=== PATIENT | female | born 1935 | race Two or more races ===

== ENCOUNTER 2017-01-18 15:55 | Emergency (ER) | payer MEDICARE, OTHER ==
[~2017-01-18] VITALS: Ht 162.6 cm; Wt 63.5 kg
[2017-01-18 16:46] VITALS: BP 110/68
[2017-01-18] MEDS ORDERED: ACETAMINOPHEN 325 MG TABLET ONE (17:09)
[2017-01-18] MEDS: ACETAMINOPHEN 650 MG/20.3 ML UDC PO ONE (17:28)
== END 2017-01-18 20:44 | disposition home or self-care (01) ==
LOC: ER 16:00
DX: M17.9 Osteoarthritis of knee, unspecified (principal); E11.9 Type 2 diabetes mellitus without complications; F02.80 Dementia in other diseases classified elsewhere, unspecified severity, without behavioral disturbance, psychotic disturbance, mood disturbance, and anxiety; G30.9 Alzheimer's disease, unspecified; I10 Essential (primary) hypertension
CPT/HCPCS: 73562 ×2; 99284; A4606; Z7610

== ENCOUNTER 2018-06-27 17:25 | Inpatient (IN) | payer MEDICARE, OTHER ==
[~2018-06-27] VITALS: Ht 157.5 cm; Wt 53.5 kg
[2018-06-27 17:57] LABS: BASOPHILS # (AUTO) 0.1 /CMM (0.0-0.2); HEMATOCRIT 39 % (33-45); HEMOGLOBIN 12.9 g/dL (11.5-14.8); LYMPHOCYTES # (AUTO) 3.1 /CMM (0.8-4.8); LYMPHOCYTES % (AUTO) 32.9 % (20.0-44.0); MEAN CORPUSCULAR HGB CONC 33 g/dl (31.0-36.0); MEAN CORPUSCULAR VOLUME 83 fL (82-100); MONOCYTES # (AUTO) 0.5 /CMM (0.1-1.30); MONOCYTES % (AUTO) 5.6 % (2.0-12.0); NEUTROPHILS # (AUTO) 5.6 /CMM (1.8-8.9); NEUTROPHILS % (AUTO) 59.5 % (43.0-81.0); PLATELET COUNT (AUTO) 264 /CMM (150-450); RDW COEFFICIENT OF VARIATION 14.1 (11.5-15.0); RED BLOOD CELL COUNT(AUTO) 4.73 MIL/uL (4.0-5.2); WHITE BLOOD COUNT (AUTO) 9.4 K/uL (4.3-11.0)
[2018-06-27 18:05] LABS: CALCIUM, SERUM 9.3 mg/dL (8.5-10.1); CARBON DIOXIDE 28 mmol/L (21-32); CHLORIDE 105 mmol/L (98-107); CREATININE 1.1 mg/dL (0.6-1.3); GLUCOSE 117 mg/dL (74-106); POTASSIUM 3.5 mmol/L (3.5-5.1); SODIUM SERUM 139 mmol/L (136-145); UREA NITROGEN, BLOOD 18 mg/dL (7-18)
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
[2018-06-27 18:11] LABS: ALANINE AMINOTRANSFERASE 14 U/L (12-78); ALKALINE PHOSPHATASE 90 U/L (46-116); ASPARTATE AMINOTRANSFERASE 18 U/L (15-37); BILIRUBIN,DIRECT 0.1 mg/dL (0.0-0.2); BILIRUBIN,TOTAL 0.4 mg/dL (0.2-1.0); TOTAL PROTEIN, SERUM 8.3 g/dL (6.4-8.2)
[2018-06-27 18:12] LABS: ACETAMINOPHEN 0 ug/ml (10-30); ALCOHOL, BLOOD < 3 mg/dL (0-0); SALICYLATE 1.3 mg/dL (2.8-20.0)
--- NOTE | 2018-06-27 20:04 | NUR ---
PT IS ASSIGNED TO GPS #: [id number], DX: PSYCHOSIS NOS, AND ACCEPTING PSYCHIATRIST: DR IZQUIERDO
[2018-06-27] MEDS ORDERED: LOSA50TA21 PO (21:09)
[2018-06-27] MEDS ORDERED: SIMV20TA6 PO (21:16)
[2018-06-27] MEDS ORDERED: MIRT15TA7 PO (21:16)
[2018-06-27] MEDS ORDERED: TRAM50TA2 PO (21:20)
[2018-06-27] MEDS ORDERED: AMLO2.5T3 PO (21:20)
[2018-06-27] MEDS ORDERED: ZOLP5TAB8 PO (21:21)
[2018-06-27] MEDS ORDERED: METF-440 PO (21:21)
[2018-06-27] MEDS ORDERED: CLON0.5T12 PO (21:25)
[2018-06-27] MEDS ORDERED: ACETAMINOPHEN 325 MG TABLET PO PRN (22:00)
[2018-06-27] MEDS ORDERED: MAGNESIUM HYDROXIDE 30 ML UDC PO PRN (22:00)
[2018-06-27] MEDS ORDERED: MAG HYDROX/AL HYDROX/SIMETH 30 ML UDC PO PRN (22:00)
[2018-06-27] MEDS ORDERED: LORAZEPAM 0.5 MG TABLET PO PRN (22:00)
[2018-06-27] MEDS: TEMAZEPAM 7.5 MG CAPSULE PO PRN (23:00)
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
[2018-06-28] MEDS ORDERED: TRAMADOL HCL 50 MG TABLET PO PRN (02:00)
[2018-06-28 08:00] VITALS: BP 127/62
[2018-06-28] MEDS: METFORMIN 500 MG TABLET PO SCH ×2 (08:34→16:20)
[2018-06-28] MEDS: AMLODIPINE BESYLATE 2.5 MG TABLET PO SCH (08:35)
[2018-06-28] MEDS: LOSARTAN POTASSIUM 50 MG TABLET PO SCH (08:35)
--- NOTE | 2018-06-28 10:00 | NUR ---
SW spoke with Shiva content coordinator at [facility] Address: [address], [place] [address] who requested SNF referral be sent to him next week.
[2018-06-28] MEDS: DIVALPROEX SODIUM 125 MG TABLET.DR PO SCH ×2 (11:32→21:37)
[2018-06-28] MEDS: SERTRALINE HCL 25 MG TABLET PO SCH (12:26)
--- NOTE | 2018-06-28 12:46 | NUR ---
INITIAL DISCHARGE PLAN: Per pts daughter Brea [phone] she wishes for pt to be discharged to a group home for short term placement. Pts daughter has identified [facility] Address: [address] [place] [phone] as a choice. SW will help form a safe and proper discharge in collaboration with .
[2018-06-28 16:00] VITALS: BP 128/69
[2018-06-28 20:00] VITALS: BP 124/61
[2018-06-28] MEDS: SIMVASTATIN 20 MG TABLET PO SCH (21:37)
[2018-06-28] MEDS: TEMAZEPAM 7.5 MG CAPSULE PO PRN (21:37)
[2018-06-28] MEDS: QUETIAPINE FUMARATE 25 MG TABLET PO SCH (21:37)
[2018-06-28] MEDS ORDERED: QUETIAPINE FUMARATE 25 MG TABLET PO SCH (22:00)
[2018-06-29 07:14] LABS: ALANINE AMINOTRANSFERASE 14 U/L (12-78); ALBUMIN 4.1 g/dL (3.4-5.0); ALKALINE PHOSPHATASE 81 U/L (46-116); ASPARTATE AMINOTRANSFERASE 28 U/L (15-37); BASOPHILS % (AUTO) 0.3 % (0.0-2.0); BILIRUBIN,TOTAL 0.5 mg/dL (0.2-1.0); CALCIUM, SERUM 9.2 mg/dL (8.5-10.1); CARBON DIOXIDE 26 mmol/L (21-32); CHLORIDE 103 mmol/L (98-107); CREATININE 1.1 mg/dL (0.6-1.3); EOSINOPHILS % (AUTO) 0.4 % (0.0-6.0); GLUCOSE 142 mg/dL (74-106); HEMATOCRIT 37 % (33-45); HEMOGLOBIN 11.8 g/dL (11.5-14.8); LYMPHOCYTES # (AUTO) 3.5 /CMM (0.8-4.8); LYMPHOCYTES % (AUTO) 29.8 % (20.0-44.0); MAGNESIUM 1.8 mg/dL (1.8-2.4); MEAN CORPUSCULAR HGB CONC 32 g/dl (31.0-36.0); MEAN CORPUSCULAR VOLUME 85 fL (82-100); MONOCYTES # (AUTO) 0.7 /CMM (0.1-1.30); MONOCYTES % (AUTO) 6.2 % (2.0-12.0); NEUTROPHILS # (AUTO) 7.3 /CMM (1.8-8.9); NEUTROPHILS % (AUTO) 63.3 % (43.0-81.0); PHOSPHORUS 3.9 mg/dL (2.5-4.9); PLATELET COUNT (AUTO) 275 /CMM (150-450); POTASSIUM 3.7 mmol/L (3.5-5.1); RDW COEFFICIENT OF VARIATION 15.3 (11.5-15.0); RED BLOOD CELL COUNT(AUTO) 4.32 MIL/uL (4.0-5.2); SODIUM SERUM 139 mmol/L (136-145); TOTAL PROTEIN, SERUM 8.3 g/dL (6.4-8.2); UREA NITROGEN, BLOOD 20 mg/dL (7-18); WHITE BLOOD COUNT (AUTO) 11.6 K/uL (4.3-11.0)
[2018-06-29 07:22] LABS: CHOLESTEROL 118 mg/dL (<200); HDL CHOLESTEROL 42 mg/dL (40-60); LDL 71 mg/dL (0-99); THYROID STIMULATING HORMONE 3.649 uIU/mL (0.358-3.74); TRIGLYCERIDES 93 mg/dL (30-150)
[2018-06-29 08:00] VITALS: BP 138/80
[2018-06-29] MEDS: LOSARTAN POTASSIUM 50 MG TABLET PO SCH (09:11)
[2018-06-29] MEDS: DIVALPROEX SODIUM 125 MG TABLET.DR PO SCH ×2 (09:11→20:45)
[2018-06-29] MEDS: METFORMIN 500 MG TABLET PO SCH ×2 (09:11→17:38)
[2018-06-29] MEDS: AMLODIPINE BESYLATE 2.5 MG TABLET PO SCH (09:12)
[2018-06-29] MEDS: SERTRALINE HCL 25 MG TABLET PO SCH (12:10)
[2018-06-29 16:00] VITALS: BP 116/67
[2018-06-29 20:00] VITALS: BP 108/65
[2018-06-29] MEDS: QUETIAPINE FUMARATE 25 MG TABLET PO SCH (21:16)
[2018-06-29] MEDS: SIMVASTATIN 20 MG TABLET PO SCH (21:16)
[2018-06-29] MEDS: TEMAZEPAM 7.5 MG CAPSULE PO PRN (23:53)
--- NOTE | 2018-06-30 03:08 | NUR ---
PATIENT REFUSED SLEEPING PILL. PATIENT UNABLE TO SLEEP, OFFERED TEMAZEPAM 7.5 MG CAP AND KEPT REFUSING.
[2018-06-30 08:00] VITALS: BP 106/65
[2018-06-30] MEDS ORDERED: METFORMIN 500 MG TABLET PO SCH (09:00)
[2018-06-30] MEDS: DIVALPROEX SODIUM 125 MG TABLET.DR PO SCH ×2 (09:01→21:05)
[2018-06-30] MEDS: AMLODIPINE BESYLATE 2.5 MG TABLET PO SCH (09:01)
[2018-06-30] MEDS: METFORMIN 500 MG TABLET PO SCH ×2 (09:02→16:14)
[2018-06-30] MEDS: LOSARTAN POTASSIUM 50 MG TABLET PO SCH (09:02)
[2018-06-30] MEDS: SERTRALINE HCL 25 MG TABLET PO SCH (12:06)
[2018-06-30 16:00] VITALS: BP 139/73
[2018-06-30 20:00] VITALS: BP 111/60
[2018-06-30] MEDS: SIMVASTATIN 20 MG TABLET PO SCH (21:05)
[2018-06-30] MEDS: QUETIAPINE FUMARATE 25 MG TABLET PO SCH (21:05)
[2018-07-01 08:00] VITALS: BP 134/76
[2018-07-01] MEDS: LOSARTAN POTASSIUM 50 MG TABLET PO SCH (08:57)
[2018-07-01] MEDS: METFORMIN 500 MG TABLET PO SCH ×2 (08:57→17:04)
[2018-07-01] MEDS: AMLODIPINE BESYLATE 2.5 MG TABLET PO SCH (08:58)
[2018-07-01] MEDS: DIVALPROEX SODIUM 125 MG TABLET.DR PO SCH ×2 (08:58→21:09)
[2018-07-01] MEDS: SERTRALINE HCL 25 MG TABLET PO SCH (12:11)
[2018-07-01 16:00] VITALS: BP 98/51
[2018-07-01 20:22] VITALS: BP 98/54
[2018-07-01] MEDS: QUETIAPINE FUMARATE 25 MG TABLET PO SCH (21:09)
[2018-07-01] MEDS: SIMVASTATIN 20 MG TABLET PO SCH (21:09)
[2018-07-01] MEDS: TEMAZEPAM 7.5 MG CAPSULE PO PRN (22:40)
[2018-07-02 08:00] VITALS: BP 101/55
[2018-07-02] MEDS: LOSARTAN POTASSIUM 50 MG TABLET PO SCH (08:54)
[2018-07-02] MEDS: DIVALPROEX SODIUM 125 MG TABLET.DR PO SCH ×2 (08:55→21:26)
[2018-07-02] MEDS: METFORMIN 500 MG TABLET PO SCH ×2 (08:55→16:44)
[2018-07-02] MEDS: AMLODIPINE BESYLATE 2.5 MG TABLET PO SCH (08:56)
[2018-07-02] MEDS: SERTRALINE HCL 25 MG TABLET PO SCH (14:14)
--- NOTE | 2018-07-02 15:15 | NUR ---
Pts daughter Brea [phone] contacted SW to inquire on discharge date and SNF acceptance. SW stated to pts daughter that no discharge order has been given yet and that SW would contact daughter as soon as SW received discharge order from .
[2018-07-02 16:00] VITALS: BP 150/80
[2018-07-02 20:00] VITALS: BP 123/61
[2018-07-02 20:46] VITALS: BP 123/61
[2018-07-02] MEDS: SIMVASTATIN 20 MG TABLET PO SCH (21:23)
[2018-07-02] MEDS: QUETIAPINE FUMARATE 25 MG TABLET PO SCH (21:26)
[2018-07-03] MEDS: TEMAZEPAM 7.5 MG CAPSULE PO PRN (02:50)
[2018-07-03 08:00] VITALS: BP 110/73
--- NOTE | 2018-07-03 08:24 | NUR ---
JEN faxed SNF referral to Shiva tax collection coordinator at [facility] Address: [address], [place] [address] for review.
[2018-07-03] MEDS: DIVALPROEX SODIUM 125 MG TABLET.DR PO SCH ×2 (09:05→21:11)
[2018-07-03] MEDS: METFORMIN 500 MG TABLET PO SCH ×2 (09:05→16:18)
[2018-07-03] MEDS: AMLODIPINE BESYLATE 2.5 MG TABLET PO SCH (09:06)
[2018-07-03] MEDS: LOSARTAN POTASSIUM 50 MG TABLET PO SCH (09:06)
[2018-07-03] MEDS: SERTRALINE HCL 25 MG TABLET PO SCH (12:50)
[2018-07-03 16:00] VITALS: BP 115/76
[2018-07-03 20:00] VITALS: BP 116/60
[2018-07-03 20:29] VITALS: BP 116/60
[2018-07-03] MEDS: SIMVASTATIN 20 MG TABLET PO SCH (21:11)
[2018-07-03] MEDS: QUETIAPINE FUMARATE 25 MG TABLET PO SCH (21:12)
[2018-07-04 08:00] VITALS: BP 124/66
[2018-07-04] MEDS: METFORMIN 500 MG TABLET PO SCH ×2 (09:39→16:33)
[2018-07-04] MEDS: AMLODIPINE BESYLATE 2.5 MG TABLET PO SCH (09:39)
[2018-07-04] MEDS: DIVALPROEX SODIUM 125 MG TABLET.DR PO SCH ×2 (09:39→22:18)
[2018-07-04] MEDS: LOSARTAN POTASSIUM 50 MG TABLET PO SCH (09:40)
--- NOTE | 2018-07-04 09:49 | NUR ---
JEN contacted Pts daughter Brea [phone] to inform her pt will be discharging Monday07/06/18 at 12:30pm to [facility]. Pts daughter agreed with discharge plan.
--- NOTE | 2018-07-04 10:31 | NUR ---
JEN contacted Pts daughter Brea [phone] to inform her pt will be discharging tomorrow, 07/05/18 instead of Monday07/06/18 at 12:30pm to [facility]. Pts daughter agreed with discharge plan.
[2018-07-04] MEDS: SERTRALINE HCL 25 MG TABLET PO SCH (12:44)
[2018-07-04 17:00] VITALS: BP 159/95
[2018-07-04] MEDS ORDERED: DEXTROSE 50%-WATER 50 ML DISP.SYRIN IV PRN (18:30)
[2018-07-04] MEDS ORDERED: INSULIN REGULAR, HUMAN 100 UNIT/ML 3 ML VIAL SQ PRN (18:30)
[2018-07-04 20:00] VITALS: BP 112/63
[2018-07-04] MEDS: SIMVASTATIN 20 MG TABLET PO SCH (22:18)
[2018-07-04] MEDS: QUETIAPINE FUMARATE 25 MG TABLET PO SCH (22:18)
[2018-07-04] MEDS: BLOOD SUGAR DIAGNOSTIC 1 EACH STRIP IN SCH (22:32)
[2018-07-05] MEDS: BLOOD SUGAR DIAGNOSTIC 1 EACH STRIP IN SCH ×2 (07:58→12:01)
[2018-07-05 08:00] VITALS: BP 100/69
[2018-07-05 08:56] VITALS: BP 100/69
[2018-07-05] MEDS: AMLODIPINE BESYLATE 2.5 MG TABLET PO SCH (08:56)
[2018-07-05] MEDS: LOSARTAN POTASSIUM 50 MG TABLET PO SCH (08:56)
[2018-07-05] MEDS: DIVALPROEX SODIUM 125 MG TABLET.DR PO SCH (08:57)
--- NOTE | 2018-07-05 12:57 | NUR ---
GPS/RN-NOTES PATIENT DISCHARGE TO [facility]. DR. SERRA AND GLORIA VITALE MADE AWARE AND AGREES OF PATIENT DISCHARGE WITH ORDERS. REPORT WAS GIVEN TO CHELSEA (SPREADER). PATIENT DID NOT VERBALIZE SI/HI,DENIES VISUAL/AUDITORY HALLUCINATION AT THE TIME OF DISCHARGE. PER NOTES PT'S DTR TAMMY [phone] WAS MADE AWARE OF THE DISCHARGE. HOSPICE MUSIC THERAPY BY AMBULANCE VIA GURNEY WITH TWO STAFF ASSIST. PATIENT LEFT THE UNIT IN STABLE CONDITION WITH ALL HER BELONGINGS INCLUDING BOTH UPPER AND LOWER DENTURES.
--- NOTE | 2018-07-05 13:59 | NUR ---
DISCHARGE NOTE: Pt was discharged at 12:45pm via [facility] ambulance trip #[id number] to [facility] ([facility]) Address: [address] [place] [address] . Pts daughter Brea [phone] , pts son, and pts came to the unit during discharge and SW advised family not to see pt until transferred to [facility] to avoid pt becoming agitated and confused during discharge and transport. Pts family agreed and stated they would wait for pt at [facility]. Pt denied suicidal/homicidal ideations and denied visual/auditory hallucinations. Pt will be under the care of Psychiatrist: Dr. Cantu Address: [address] [place] [address] and [employer] Associate: Dr. Rai Fishman [address] [place] [address] . The multidisciplinary exitcare form was done, printed, signed, and given to the patient.
== END 2018-07-05 13:09 | DRG 885 ==
LOC: ER 17:26 → GPS 20:12
PROVIDERS: ADMIT Psychiatry & Neurology Psychiatry; ATTEND Internal Medicine
DX: F29 Unspecified psychosis not due to a substance or known physiological condition (principal); F01.50 Vascular dementia, unspecified severity, without behavioral disturbance, psychotic disturbance, mood disturbance, and anxiety; E11.65 Type 2 diabetes mellitus with hyperglycemia; G30.9 Alzheimer's disease, unspecified; F02.80 Dementia in other diseases classified elsewhere, unspecified severity, without behavioral disturbance, psychotic disturbance, mood disturbance, and anxiety; M19.90 Unspecified osteoarthritis, unspecified site; I10 Essential (primary) hypertension; E78.5 Hyperlipidemia, unspecified
CPT/HCPCS: 36415; 80048-TC; 80053-TC; 80061-TC; 80076-TC; 82962-TC; 83735-TC; 84100-TC; 84443-TC; 85025-TC; 87081-TC; A4606; G0480; J1815; Z7610